=== PATIENT | female | born 1985 | race Caucasian/White ===

== ENCOUNTER 2019-07-31 11:33 | Inpatient (IN) | payer OTHER, SELFPAY ==
[2019-07-31] VITALS (14 sets, daily range): BP systolic 90–143; BP diastolic 49–97; PULSE 80–134; RESP 18; TEMP 36.6–36.8; O2SAT 99; BMI 27.7
[2019-07-31 13:43] LABS: Basophils Percent Auto 0.3 % (0.2-1.2); Eosinophils Absolute Auto 0.1 K/mm3 (0-0.3); Eosinophils Percent Auto 0.5 % (0-4.4); Hematocrit 32.3 % (37.0-47.0); Hemoglobin 10.7 g/dL (12.0-15.0); Immature Granulocyte Absolute 0.12 K/mm3 (0.00-0.031); Lymphocytes Absolute Auto 2.45 K/mm3 (0.9-3.2); Lymphocytes Percent Auto 20.7 % (18.3-44.2); Mean Corpuscular HGB Conc 33.1 g/dl (32-36); Mean Corpuscular Hemoglobin 29.6 pg (26-34); Mean Corpuscular Volume 89.2 fl (80-100); Mean Platelet Volume 10.9 fl (7.4-10.4); Monocytes Absolute Auto 0.4 K/mm3 (0.1-0.6); Monocytes Percent Auto 3.6 % (2.6-8.5); Neutrophils Absolute Auto 8.7 K/mm3 (1.3-6.7); Neutrophils Percent Auto 73.9 % (45.5-73.1); Platelet Count Result 225 k/mm3 (150-375); Red Blood Count 3.62 M/mm3 (4.2-5.4); Red Cell Distribution Width 13.3 % (11.5-14.5); White Blood Count 11.8 K/mm3 (4.5-10.0)
--- NOTE | 2019-07-31 13:44 | LDADM ---
This patient, Skylar Torres, was admitted to Labor/Delivery/Recovery 106 on 07/31/19 at 11:33. Plans for labor, pain management and were discussed with patient. Patient/family oriented to hospital policies and general routines including ID bracelet, bed and alarms, visiting hours, pain management, procedures, bathroom and other care routines, personal items, smoking policy, room service/diet and guest tray routines, security routines, and visiting hours. Patient/Family are encouraged to report perceived risks to care and to ask questions if they do not understand what they are told or what they should do. See OBIX for further documentation.
--- NOTE | 2019-07-31 17:55 | PM.IMHP ---
H&P: HPI History of Present Illness Chief complaint: labor Narrative: Skylar Torres is a 33 year old female at 40 weeks admitted for labor and SROM at 0930. Cervix changed from 3 to 5 cm. Confirmed ROM plus. PNC uncomplicated. LMP 10/24/18 EDC 07/31/19 consistent with a 7 week ultrasound. Labs: O+, ab-neg, ,plt-270, HepB ag neg, Hemoglobin electrophoresis- normal, HCV ab-, HIV-, GC/CHL-/-, Pap-nl, Rub-Im, RPR-NR, UA neg, vit D 36, third trim h/h-04/05, 1hr-149, 3hr-78/130/130/102, HIV neg. GBS negative. Review of Systems Review of Systems: All systems reviewed & are unremarkable except as noted in HPI and below Constitutional: Constitutional: Reports no additional constitutional complaints and Denies headache(s) Eyes: Eyes: Denies spots in vision ENT: Reports system reviewed and no additional complaints, except as documented and Denies headache(s) Cardiovascular: Cardiovascular: Denies chest pain and Denies dyspnea Respiratory: Respiratory: Denies dyspnea Gastrointestinal: Gastrointestinal: Reports no additional gastrointestinal complaints, Reports bloating and Reports nausea Genitourinary: Genitourinary: Reports amenorrhea Musculoskeletal: Musculoskeletal: Reports no additional musculoskeletal complaints Integumentary/Breasts: Skin/Breast: Denies breast mass and Denies rash Neurologic: Denies headache(s) Psychiatric: Psychiatric: Reports no additional psychiatric complaints [facility] Past Medical History Medical History (Updated 07/31/19 @ 17:59 by Walker Fleming MD) Active labor Social History Social History Smoking status: Never smoker Second hand tobacco smoke exposure: No Alcohol intake: never Substance use: never Gender identity (if verbalized by the patient): Female Spiritual care concerns: No Meds Home Medications and Allergies Home Medications Medication Instructions Recorded Confirmed Type vit 123-iron 28 mg-folic 1 cap PO DAILY 04/12/19 07/31/19 History acid 800 [id number]-[id number] 235 mg capsule iron carb,gluc 90 mg-folic acid 1 1 tablet PO ONCE 05/14/19 07/31/19 History mg-B12 12 [id number] 50mg tablet Allergies Allergy/AdvReac Type Severity Reaction Status Date / Time Sulfa (Sulfonamide Allergy Unknown Rash Verified 07/26/19 08:19 Antibiotics) Vital Signs Vital Signs - 24 hr 07/31/19 11:44 07/31/19 15:42 07/31/19 16:01 Temperature 98.3 F Pulse Rate 80 91 Blood Pressure 138/80 135/84 07/31/19 17:32 07/31/19 17:33 Temperature 98.1 F Pulse Rate 89 Blood Pressure 90/49 L Exam Const: General: healthy appearing and no acute distress Orientation/consciousness: oriented to person, oriented to place and oriented to time HENMT: Head: normal to inspection Ears: hearing grossly normal bilaterally Teeth and gingiva: dentition normal Eyes: General: appearance normal, both eyes and all related structures Neck: Neck: normal visual inspection and no lymphadenopathy Thyroid: thyroid normal Chest: Chest palpation & inspection: normal inspection of the chest Resp: Effort & Inspection: normal respiratory effort Cardio: Rate: regular rate Rhythm: regular rhythm GI: Inspection: normal to inspection : Manual OB Exam: dilated 5 cm, effaced 75% and station -1 Amniotic Fluid: clear Skin: General skin exam: no rashes or lesions noted Neuro: General: oriented to person, oriented to place and oriented to time Speech: normal speech Gait exam (Neuro): Normal gait present Extrem: General: normal to inspection Right lower extremity: no edema Psych: Appearance: grossly normal H&P: Results Labs Labs: Short CBC 07/31/19 Range/Units 13:37 WBC 11.8 H (4.5-10.0) K/mm3 Hgb 10.7 L (12.0-15.0) g/dL Hct 32.3 L (37.0-47.0) % Plt Count 225 (150-375) k/mm3 Assessment and Plan Assessment and plan (1) Active labor: Status: Acut
--- NOTE | 2019-07-31 18:00 | PM.OBPRVD ---
OB - Delivery Note Procedure Delivery date: 07/31/19 Procedure: Normal vaginal delivery Induction method: none Delivery monitor: external FHT Route of delivery: Laceration description: Perineal - 2nd Degree Delivery repair: vicryl (3.0) Specimen: No Estimated blood loss (mL): 150 Complications: None Narrative: She presented to Labor and delivery with complaints of leaking of fluid this occurred at approximately 9:30 a.m. clear fluid. After or several hours of observation, the ROM Plus was positive. She had been quentin regularly since arrival. Her cervix on admission was 3-1/2 cm she progressed to 5 cm. She was admitted. She did have a fore bag which was ruptured. She progressed to complete and delivered a male infant there was a tight nuchal cord which was surgically reduced. The was vigorously crying upon delivery and placed on maternal abdomen. Baby Date of : 07/31/19 Time of : 17:21 Weeks of gestation at delivery: 40 Infant gender: Male Weight (pounds): 9 presentation: vertex position: Left Occiput Anterior Placenta delivery description: Spontaneous cord vessel description: 3 Vessels, Nuchal Cord and Tight score one minute: 8 score five minutes: 9
[2019-07-31] MEDS: BENZOCAINE 20% AER SPR (*SP) 56 GM CAN 1 SPRAY TOPICAL (20:02)
[2019-07-31] MEDS: WITCH HAZEL 40 PADS 1 PAD TOPICAL (20:02)
--- NOTE | 2019-07-31 20:15 | OBPPTRN ---
Patient transferred to post room #285 via wheelchair with baby in bassinet. Support person present. Oriented to unit, room, information board, rooming in, admission packet and security measures. Patient verbalizes understanding.
[2019-07-31] MEDS: IBUPROFEN 600 MG TABLET PO (23:01)
[2019-08-01 05:49] LABS: Hematocrit 31.7 % (37.0-47.0); Hemoglobin 10.4 g/dL (12.0-15.0)
[2019-08-01 07:52] LABS: Rapid Plasma Reagin Non-Reactive (NonReactive)
[2019-08-01 08:20] VITALS: BP 132/82; PULSE 92; RESP 16; TEMP 37.1; O2SAT 97
[2019-08-01] MEDS: MULTIVIT/MIN/PREN/FOL AC/IRON TABLET 1 TAB PO (08:59)
[2019-08-01] MEDS: IBUPROFEN 600 MG TABLET PO ×2 (08:59→17:31)
--- NOTE | 2019-08-01 10:25 | PM.OBPNVD ---
OB - PN: Subj Subjective Date/time seen: 08/01/19 10:25 Patient comments: pain well controlled, tolerating diet and other (Decreasing lochia.) baby status: doing well and nursing well Purchase feeding status: exclusively breast feeding OB - PN: Obj Data Labs CBC & Chem 7: 08/01/19 04:58 Labs: Laboratory Results - last 24 hr 07/31/19 07/31/19 07/31/19 13:37 13:37 13:37 WBC 11.8 H RBC 3.62 L Hgb 10.7 L Hct 32.3 L MCV 89.2 MCH 29.6 MCHC 33.1 RDW 13.3 Plt Count 225 MPV 10.9 H Immature Gran % (Auto) 1.0 H Neut % (Auto) 73.9 H Lymph % (Auto) 20.7 [place] % (Auto) 3.6 Eos % (Auto) 0.5 Baso % (Auto) 0.3 Lymph # (Auto) 2.45 [place] # (Auto) 0.4 Eos # (Auto) 0.1 Baso # (Auto) 0.0 Abs Immat Gran (auto) 0.12 H Absolute Neuts (auto) 8.7 H Absolute Nucleated RBC 0.0 Nucleated RBC % 0.0 RPR Non-reactive Blood Type O Positive Antibody Screen Negative 08/01/19 04:58 WBC RBC Hgb 10.4 L Hct 31.7 L MCV MCH MCHC RDW Plt Count MPV Immature Gran % (Auto) Neut % (Auto) Lymph % (Auto) [place] % (Auto) Eos % (Auto) Baso % (Auto) Lymph # (Auto) [place] # (Auto) Eos # (Auto) Baso # (Auto) Abs Immat Gran (auto) Absolute Neuts (auto) Absolute Nucleated RBC Nucleated RBC % RPR Blood Type Antibody Screen OB - PN A/P Plan day: 1 Plan: routine care Comments: Patient doing well. Continue routine care. She desires to go home. Ok to be discharged after 24 hours if baby allowed to be discharged. Discussed discharge precautions. Time Spent With Patient Time: Total time spent is greater than 50% in coordination of care (as documented) at patient's floor/unit and/or counseling patient: Review of Systems Review of Systems: All systems reviewed & are unremarkable except as noted in HPI and below Constitutional: Constitutional: Reports no additional constitutional complaints Cardiovascular: Cardiovascular: Denies dyspnea Respiratory: Respiratory: Denies dyspnea Gastrointestinal: Gastrointestinal: Reports no additional gastrointestinal complaints and Denies abdominal pain Genitourinary: Genitourinary: Reports no additional female genitourinary complaints Exam Const: General: no acute distress, alert and awake Resp: Effort & Inspection: normal respiratory effort GI: GI Palp: No Tenderness to palpation present (GI) Other: Fundus nontender, below umbilicus Psych: Appearance: grossly normal Affect: normal affect Other: Abd: fundus firm below umbilicus, nontender Perineum: healing Ext: nontender
--- NOTE | 2019-08-01 10:27 | PM.OBDSVD ---
OB - DS: Summary OB Procedures : None OB Procedures Intrapartum: Spontaneous Vag Delivery OB Procedures: : None Time Spent with Patient Time attestation: Total time spent providing and/or coordinating discharge services: DS: Data Data Completed and Pending Labs on day of discharge: Labs from last 24 hours 08/01/19 07/31/19 07/31/19 04:58 13:37 13:37 WBC RBC Hgb 10.4 L Hct 31.7 L MCV MCH MCHC RDW Plt Count MPV Immature Gran % (Auto) Neut % (Auto) Lymph % (Auto) [place] % (Auto) Eos % (Auto) Baso % (Auto) Lymph # (Auto) [place] # (Auto) Eos # (Auto) Baso # (Auto) Abs Immat Gran (auto) Absolute Neuts (auto) Absolute Nucleated RBC Nucleated RBC % RPR Non-reactive Blood Type O Positive Antibody Screen Negative 07/31/19 13:37 WBC 11.8 H RBC 3.62 L Hgb 10.7 L Hct 32.3 L MCV 89.2 MCH 29.6 MCHC 33.1 RDW 13.3 Plt Count 225 MPV 10.9 H Immature Gran % (Auto) 1.0 H Neut % (Auto) 73.9 H Lymph % (Auto) 20.7 [place] % (Auto) 3.6 Eos % (Auto) 0.5 Baso % (Auto) 0.3 Lymph # (Auto) 2.45 [place] # (Auto) 0.4 Eos # (Auto) 0.1 Baso # (Auto) 0.0 Abs Immat Gran (auto) 0.12 H Absolute Neuts (auto) 8.7 H Absolute Nucleated RBC 0.0 Nucleated RBC % 0.0 RPR Blood Type Antibody Screen Discharge Plan Discharge Attending physician on discharge: Walker Fleming Discharging Clinician: Walker Fleming Patient Disposition: Home, Self-Care Activity: pelvic rest Diet: regular Patient Instructions: Antibiotic Form Stand Alone Forms: General Discharge Information Follow-up/Referrals: Walker Fleming MD [Primary Care Provider] - 2 Weeks Discharge Medications: Discontinued One-A-Day Women's 1 28 mg iron- 800 mcg-235 mg capsule 1 cap PO DAILY RF: 0 Ferralet 90 Dual-Iron Delivery 90-1-12-50 oa-vi-syw-mg tablet 1 tablet PO ONCE RF: 0 Date of admission: 07/31/19 11:33 Primary Care Provider: Walker Fleming Admitting Provider: Walker Fleming Attending physician on admission: Walker Fleming
--- NOTE | 2019-08-01 13:50 | PC.NURSE ---
Observed mother is able to independently latch with appropriate positioning/alignment. She denies any nipple discomfort, is feeding as required and waking infant to feed if needed. has had 7 effective feedings since , and is currently meeting outcomes for weight, output, jaundice and feeding frequencies. Mother states she feels confident to continue effective at home. Reviewed transition to breast milk, signs of adequate intake, and engorgement/relief. Instructed to call ICP if intake/output less than required. Reviewed regular medications mother is taking. Information provided per Serena. Reviewed community resources on the [facility] website and in the Mom/Baby guide. Information on outpatient services provided. Mother has no further questions at this time.
== END 2019-08-01 19:25 | disposition home or self-care (01) | DRG 807 ==
LOC: ANHLDR 19:12 → ANHOB2 20:59
PROVIDERS: Admitting Provider Obstetrics & Gynecology; PCP Obstetrics & Gynecology; Visit Provider Obstetrics & Gynecology
DX: O69.81X0 Labor and delivery complicated by cord around neck, without compression, not applicable or unspecified (principal); Z37.0 Single live birth; Z3A.40 40 weeks gestation of pregnancy; Z23 Encounter for immunization; O70.1 Second degree perineal laceration during delivery
CPT/HCPCS: 36415; 84112; 85014; 85018; 85025; 86592; 86850; 86900; 86901; A9270; J2590

== ENCOUNTER 2019-12-24 10:51 | Outpatient (CLI) | payer BC, SELFPAY ==
[2019-12-24 12:39] LABS: Free T4 Free Thyroxine 0.85 ng/mL (0.78-2.19)
== END 2019-12-24 10:52 | disposition home or self-care (01) ==
LOC: ANHLAB 10:51
PROVIDERS: Visit Provider Obstetrics & Gynecology
DX: E04.9 Nontoxic goiter, unspecified (principal)
CPT/HCPCS: 36415; 84439; 84443